=== PATIENT | female | born 1930 | race Caucasian/White ===

== ENCOUNTER 2019-03-16 11:31 | Inpatient (IN) | payer OTHER, MEDICAID ==
[~2019-03-16] VITALS: Ht 170.2 cm; Wt 78.5 kg
[~2019-03-16 11:31] MED LIST: ACETAMINOPHEN325 M1 PO; ALBUTEROL SULFAT2 MG PO; ARICEPT 5 MG TAB5 MG PO; ARICEPT10 M1 PO; BIOFREEZE118 ML TOP; CALCIUM + D SO1 EACH PO; CALCIUM 600 +1 EAC9 PO; CENTRUM SILVER1 EAC4 PO; COLACE100 MG PO; COUMADIN 5 MG TA5 M1 PO; CYMBALTA30 MG PO; CYMBALTA60 MG PO; DUONEB 2.5-0.5 M3 ML INH; ENALAPRIL MALEA10 M1 PO; ENALAPRIL MALEA20 MG PO; GABAPENTIN 100100 MG PO; HYDROCERIN CREA1 JAR TOP; HYDROCORTISONE3011 RECTAL; MINOCIN100 MG PO; MULTIVITAMINS PO; NAMENDA XR PO; NAMENDA XR28 MG PO; PROTONIX40 M1 PO; PROVENTIL HFA6.7 G1; TRAMADOL 50 MG50 MG PO; TRAMADOL100 MG PO; TYLENOL325 MG PO; ULTRAM 50MG TAB50 MG PO; VASOTEC20 MG PO; VENTOLIN HFA 1818 GM INH; VENTOLIN HFA INH8 GM INH; VITAMIN D1000 UNI1 PO; VITAMIN D31000 UNI2 PO; VOLTAREN GEL 1100 G1; ZOLOFT 50 MG TA50 M1 PO; ZPAK; [UNRECOGNIZED DRUG - MIXTURE] PO
[2019-03-16] MEDS ORDERED: KLOR-CON 1010 MEQ PO (12:17)
[2019-03-16 12:18] LABS: HEMATOCRIT 37.7 % (37.0-47.0); HEMOGLOBIN 12.7 gm/dL (12.0-15.0); MCH 31.4 pg (26.0-34.0); MCHC 33.7 g/dL (28.0-37.0); MCV 93.1 fL (80.0-100.0); MPV 8.4 fl. (7.2-11.1); NUCLEATED RBCS 0 /100WBC; PLATELET COUNT* 308 thou/uL (150-400); RBC 4.05 mil/uL (4.20-5.00); RDW-CV 13.9 % (10.5-14.5); WBC 8.7 thou/uL (4.0-11.0)
[2019-03-16] MEDS ORDERED: CHLORTHALIDONE25 MG PO ×2 (12:18→14:19)
[2019-03-16] MEDS ORDERED: LOPRESSOR25 PO (12:18)
[2019-03-16] MEDS ORDERED: UNKNOWN BP MED PO (12:19)
[2019-03-16 12:36] LABS: ANION GAP 11 mmol/L (7-16); BUN 28 mg/dL (7-18); CALCIUM 9.2 mg/dL (8.5-10.1); CHLORIDE 103 mmol/L (98-107); CO2 27 mmol/L (21-32); CREATININE 1.2 mg/dL (0.6-1.3); GLUCOSE 127 mg/dL (70-99); POTASSIUM 3.8 mmol/L (3.5-5.1); SODIUM 141 mmol/L (136-145); TROPONIN-I LEVEL <0.06 ng/mL (<0.06)
[2019-03-16 12:37] LABS: ALKALINE PHOSPHATASE 83 U/L (46-116); LIPASE 165 U/L (73-393); NT-PRO BRAIN NAT PEPTIDE 463 pg/mL (<300); SGOT 14 U/L (15-37); SGPT 15 U/L (30-65); TOTAL BILIRUBIN 0.2 mg/dL (<0.1-1.0); TOTAL PROTEIN 6.8 g/dL (6.4-8.2)
[2019-03-16 13:03] LABS: ABSOLUTE BASOPHILS 0.1 thou/uL (0.0-0.2); ABSOLUTE EOSINOPHILS 0.3 thou/uL (0.0-0.7); ABSOLUTE LYMPHOCYTES 0.9 thou/uL (0.8-5.3); ABSOLUTE MONOCYTES 0.5 thou/uL (0.0-1.2); GIANT PLATELETS OCCASIONAL
[2019-03-16 13:09] LABS: PLATELET ESTIMATE INCREASED
[2019-03-16 13:10] LABS: CLUMPED PLTS MANY
[2019-03-16] MEDS ORDERED: TOPROL XL25 MG PO (14:19)
[2019-03-16] MEDS ORDERED: SPIRONOLACTONE25 MG PO (14:19)
--- NOTE | 2019-03-16 14:55 | EKG ---
[place] [address] ELECTROCARDIOGRAM REPORT Name: RORO ATKINSON Room: [place] [address] ADM IN M.R.#: [id number] Admission: 03/16/19 Attend Phys: Geronimo Thompson, Discharge: Date of : [birth year] Report #: [id number] THIS REPORT FOR: //name// [facility] ED Test Date: 2019-03-16 Test Time: 12:20:03 Pat Name: RORO ATKINSON Department: Room: [facility] Gender: F Dental Instructor: : 1930 Requested By: Silvia Cotton Order Number: [id number] MD: Raúl Huggins Measurements Intervals [place] Rate: 70 P: 57 ND: 154 QRS: -41 QRSD: 88 T: 82 QT: 400 QTc: 432 Interpretive Statements Sinus rhythm Atrial premature complexes Left anterior fascicular block Abnormal R-wave progression, early transition Compared to ECG 12/19/2014 11:43:41 no change Electronically Signed On 03-16-2019 14:55:31 CDT by Raúl Huggins [email or web address] <ELECTRONICALLY SIGNED> By: Raúl Huggins MD, FAC 03/16/19 1455 1220 1220 Raúl Huggins MD, [facility] /EPI
[2019-03-16 16:45] VITALS: BP 88/42
[2019-03-16 19:40] VITALS: BP 84/50
[2019-03-17 04:00] VITALS: BP 144/60
[2019-03-17 09:00] VITALS: BP 108/47
[2019-03-17 09:07] LABS: URINE BILIRUBIN NEGATIVE (Negative); URINE BLOOD NEGATIVE (Negative); URINE CLARITY SL CLOUDY; URINE COLOR YELLOW; URINE GLUCOSE-RANDOM NEGATIVE (Negative); URINE KETONES NEGATIVE (Negative); URINE LEUKOCYTES-REFLEX 1+ (Negative); URINE NITRITE-REFLEX NEGATIVE (Negative); URINE PROTEIN NEGATIVE (Negative); URINE UROBILINOGEN 0.2 E.U./dl (0.2-1.0)
[2019-03-17 09:14] LABS: BACTERIA-REFLEX >30 Many /HPF (None Seen); CASTS None Seen /LPF (None Seen); CRYSTALS None Seen /LPF (None Seen); SQUAMOUS 0-3 Few /LPF (0-3); URINE RBC None Seen /HPF (0-2); URINE WBC-REFLEX 6-15 Few /HPF (0-5)
[2019-03-17 09:19] LABS: AMP/METHAMP Negative (Negative); BARBITURATES Negative (Negative); BENZODIAZEPINES Negative (Negative); COCAINE Negative (Negative); METHADONE Negative (Negative); OPIATES Negative (Negative); PCP Negative (Negative); THC Negative (Negative)
[2019-03-17 17:40] VITALS: BP 95/55
[2019-03-17 20:00] VITALS: BP 124/62
[2019-03-18 04:33] LABS: HEMATOCRIT 32.3 % (37.0-47.0); HEMOGLOBIN 11.1 gm/dL (12.0-15.0); MCH 31.9 pg (26.0-34.0); MCHC 34.5 g/dL (28.0-37.0); MCV 92.5 fL (80.0-100.0); MPV 10.7 fl. (7.2-11.1); RBC 3.49 mil/uL (4.20-5.00); WBC 6.7 thou/uL (4.0-11.0)
[2019-03-18 04:42] LABS: CALCIUM 8.2 mg/dL (8.5-10.1); CREATININE 0.8 mg/dL (0.6-1.3); MAGNESIUM 1.8 mg/dL (1.8-2.4); POTASSIUM 3.6 mmol/L (3.5-5.1)
[2019-03-18 07:30] VITALS: BP 128/78
[2019-03-18 10:58] VITALS: BP 128/66
[2019-03-18 16:42] VITALS: BP 119/50
[2019-03-18 17:32] VITALS: BP 149/60
[2019-03-18 20:00] VITALS: BP 129/89
[2019-03-19 07:21] VITALS: BP 116/62
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
[2019-03-19 15:21] VITALS: BP 119/60
[2019-03-19 21:30] VITALS: BP 117/51
[2019-03-20 05:04] LABS: HEMATOCRIT 31.1 % (37.0-47.0); HEMOGLOBIN 10.6 gm/dL (12.0-15.0); MCH 31.5 pg (26.0-34.0); MCV 92.6 fL (80.0-100.0); MPV 9.9 fl. (7.2-11.1); RBC 3.36 mil/uL (4.20-5.00); RDW-CV 13.7 % (10.5-14.5); WBC 6.3 thou/uL (4.0-11.0)
[2019-03-20 05:32] LABS: CALCIUM 8.1 mg/dL (8.5-10.1); CREATININE 0.8 mg/dL (0.6-1.3); MAGNESIUM 1.6 mg/dL (1.8-2.4); POTASSIUM 3.4 mmol/L (3.5-5.1)
[2019-03-20 07:22] VITALS: BP 135/58
[2019-03-20 20:00] VITALS: BP 108/58
[2019-03-21 04:25] LABS: ABSOLUTE EOSINOPHILS 0.2 thou/uL (0.0-0.7); ABSOLUTE MONOCYTES 0.7 thou/uL (0.0-1.2); ABSOLUTE NEUTROPHILS 4.8 thou/uL (1.6-8.1); BASOPHILS 0.6 %; EOSINOPHILS 2.9 %; HEMOGLOBIN 10.7 gm/dL (12.0-15.0); LYMPHOCYTES 14.5 %; MCHC 33.4 g/dL (28.0-37.0); MCV 92.9 fL (80.0-100.0); MONOCYTES 10.5 %; MPV 9.6 fl. (7.2-11.1); NUCLEATED RBCS 0 /100WBC; PLATELET COUNT* 173 thou/uL (150-400); POLYS 71.5 %; RBC 3.44 mil/uL (4.20-5.00); RDW-CV 13.9 % (10.5-14.5); WBC 6.7 thou/uL (4.0-11.0)
[2019-03-21 04:41] LABS: CALCIUM 8.7 mg/dL (8.5-10.1); CREATININE 0.9 mg/dL (0.6-1.3); MAGNESIUM 2.2 mg/dL (1.8-2.4); POTASSIUM 4.1 mmol/L (3.5-5.1)
[2019-03-21 07:32] VITALS: BP 140/70
[2019-03-21 16:00] VITALS: BP 100/75
[2019-03-21 21:15] VITALS: BP 109/50
[2019-03-22 05:28] LABS: CALCIUM 8.9 mg/dL (8.5-10.1); CREATININE 0.8 mg/dL (0.6-1.3); POTASSIUM 3.9 mmol/L (3.5-5.1)
[2019-03-22 08:37] VITALS: BP 114/65
--- NOTE | 2019-03-22 14:06 | PATH ---
[address] [address] PATHOLOGY RPT PROCEDURE Name: RORO ATKINSON Room: [address] IN M.R.#: [id number] Admission: 03/17/19 Date of : [birth year] Discharge: Report #: [id number] Path Case #: [id number] [facility] Accession Number: [id number] . 01 Material submitted: . buttock - ESCHAR RIGHT BUTTOCK WOUND. Modifiers: right . 01 Clinical history: . Right buttock wound . 02 Diagnosis: Right buttock wound, (eschar): - Benign skin and subcutaneous tissue with nonspecific ulceration, necrosis, fibrosis and acute and chronic inflammation. . (JUNA:mml; 03/22/2019) QLM/03/22/2019 . 02 Electronically signed: . Humble Diaz MD, Pathologist NPI- [id number] . 01 Gross description: . The specimen is received in formalin, labeled "Roor Wilbarger, eschar". The site is additionally labeled on the requisition as, "right buttock wound eschar". Received are multiple segments of dusky de-cooper necrotic-appearing soft tissue admixed with a slight amount of possible skin measuring 4.8 x 3.7 x 1.2 cm in aggregate dimensions. The specimen is submitted representatively in cassette A1. (CAA; 03/19/2019) QAC/QAC . 02 Pathologist provided ICD-10: L98.419 . 02 CPT . 692501 Specimen Comment: A courtesy copy of this report has been sent to Specimen Comment: [phone], , . Specimen Comment: Report sent to ,DR LINO / DR ZAMORA Performed at: [address], [place], [place] [id number] MD Perez Mandujano MD Phone: [phone] Performed at: 02 [facility] [address], [place], [place] [id number] MD Humble Diaz MD Phone: [phone]
[2019-03-22 15:45] VITALS: BP 104/55
[2019-03-23 00:30] VITALS: BP 110/49
[2019-03-23 04:49] LABS: CALCIUM 8.2 mg/dL (8.5-10.1); POTASSIUM 3.9 mmol/L (3.5-5.1)
[2019-03-23 08:05] VITALS: BP 123/52
[2019-03-23 20:00] VITALS: BP 117/62
[2019-03-24 07:50] VITALS: BP 108/42
[2019-03-24] MEDS ORDERED: ASPIR 8181 MG PO (11:28)
[2019-03-24] MEDS ORDERED: KEFLEX500 M1 PO (11:29)
[2019-03-24] MEDS ORDERED: FLAGYL500 M1 PO (11:31)
[2019-03-24] MEDS ORDERED: TRAMADOL 50 MG50 MG PO (11:32)
[2019-03-24] MEDS ORDERED: CENTRUM SILVER1 EAC2 PO (12:02)
[2019-03-24 14:15] VITALS: BP 108/42
[2019-03-25] VITALS: BP 123/61
[2019-03-25 07:19] VITALS: BP 134/53
--- NOTE | 2019-03-25 09:14 | EEG ---
[address] [address] EEG STUDY REPORT Name: KATHERINE ATKINSONTRISTIN Mercado Room: [address] IN ..#: [id number] Admission: 03/17/19 Attend Phys: Geroinmo Thompson, Discharge: Date of : [birth year] Report #: [id number] THIS REPORT FOR: //name// CC: Yuli Thompson HISTORY: The patient is an 88-year-old female with confusion and difficulty with memory. An EEG is requested for further evaluation. DESCRIPTION: The awake record consists of symmetric moderate amplitude 5.5-6 cycles per second posterior dominant rhythm. Photic stimulation was non-activating. No focal abnormalities or epileptiform discharges were noted. Muscle artifact was noted briefly during the recording. IMPRESSION: This is an abnormal adult record consistent with moderate diffuse cerebral dysfunction. This is a nonspecific finding and may be seen in encephalopathy or dementia. No focal abnormalities or epileptiform discharges were noted. <ELECTRONICALLY SIGNED> By: Dalia Chavira DO 03/25/19 0914 1010 [id number] Chavira DO /nt
[2019-03-25 11:16] VITALS: BP 108/42
[2019-03-25 14:00] VITALS: BP 108/42
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
== END 2019-03-25 13:45 | DRG 901 ==
LOC: M.ERS 11:31 → M.TBA-ER 14:47 → M.3W 16:08
PROVIDERS: Family Medicine; Physician Assistant; ADMIT Family Medicine
PROC: 05HY33Z Insertion of Infusion Device into Upper Vein, Percutaneous Approach (ICD-10-PCS; principal; 2019-03-18)
PROC: 0JB90ZZ Excision of Buttock Subcutaneous Tissue and Fascia, Open Approach (ICD-10-PCS; principal; 2019-03-18)
DX: T76.01XA Adult neglect or abandonment, suspected, initial encounter (principal); G92 Toxic encephalopathy; N39.0 Urinary tract infection, site not specified; L89.312 Pressure ulcer of right buttock, stage 2; J45.909 Unspecified asthma, uncomplicated; I10 Essential (primary) hypertension; F32.9 Major depressive disorder, single episode, unspecified; G30.9 Alzheimer's disease, unspecified; F02.80 Dementia in other diseases classified elsewhere, unspecified severity, without behavioral disturbance, psychotic disturbance, mood disturbance, and anxiety; M47.892 Other spondylosis, cervical region; M17.10 Unilateral primary osteoarthritis, unspecified knee; I70.90 Unspecified atherosclerosis; F41.9 Anxiety disorder, unspecified; E87.6 Hypokalemia; E83.42 Hypomagnesemia; Z66 Do not resuscitate; Z85.3 Personal history of malignant neoplasm of breast; Z90.12 Acquired absence of left breast and nipple; Z98.41 Cataract extraction status, right eye; Z88.6 Allergy status to analgesic agent; Z88.0 Allergy status to penicillin; Z88.2 Allergy status to sulfonamides; Z88.7 Allergy status to serum and vaccine; Z88.8 Allergy status to other drugs, medicaments and biological substances